=== PATIENT | male | born 1990 ===

== ENCOUNTER → 2020-05-01 12:56 | Outpatient (CLI) | payer OTHER | END | disposition home or self-care (01) | LOC: LAB 12:56 | PROVIDERS: ATTEND Emergency Medicine Pediatric Emergency Medicine | DX: Z03.818 Encounter for observation for suspected exposure to other biological agents ruled out (principal) ==

== ENCOUNTER 2020-05-08 09:08 | Outpatient (CLI) | payer OTHER | END 2020-05-08 15:20 | disposition home or self-care (01) | LOC: LAB 09:08 | DX: U07.1 COVID-19 (principal) ==

== ENCOUNTER → 2020-05-09 07:31 | Outpatient (CLI) | payer OTHER | END | disposition home or self-care (01) | LOC: LAB 07:31 | DX: U07.1 COVID-19 (principal) ==

== ENCOUNTER 2020-10-13 13:31 | Outpatient (CLI) | payer OTHER | END 2020-10-13 13:40 | disposition home or self-care (01) | LOC: RAD 13:31 | PROVIDERS: ATTEND Orthopaedic Surgery Sports Medicine | DX: M76.51 Patellar tendinitis, right knee (principal) | CPT/HCPCS: 73721 ==